=== PATIENT | female | born 2000 | race Caucasian/White ===

== ENCOUNTER 2023-03-15 20:17 | Emergency (ER) | payer OTHER, SELFPAY ==
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
[2023-03-15 20:53] VITALS: BP 114/75; PULSE 86; RESP 18; TEMP 36.6; O2SAT 97; BMI 27.9
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
== END 2023-03-15 23:28 | disposition home or self-care (01) ==
PROVIDERS: Emergency Provider Emergency Medicine; PCP Physician Assistant
DX: S06.0X0A Concussion without loss of consciousness, initial encounter (principal); Y04.2XXA Assault by strike against or bumped into by another person, initial encounter; R11.2 Nausea with vomiting, unspecified; Y93.F1 Activity, caregiving, bathing; Y92.239 Unspecified place in hospital as the place of occurrence of the external cause; Y99.0 Civilian activity done for income or pay
CPT/HCPCS: 70450; 99283; 99284

== ENCOUNTER → 2023-03-20 13:59 | Outpatient (BNVA) | payer SELFPAY | PROVIDERS: PCP Physician Assistant | DX: Z13.89 Encounter for screening for other disorder (principal) | CPT/HCPCS: 99202 ==

== ENCOUNTER → 2023-03-26 12:58 | Outpatient (BNVA) | payer OTHER, SELFPAY | PROVIDERS: PCP Physician Assistant; Visit Provider Physician Assistant Medical | DX: Z13.89 Encounter for screening for other disorder (principal) | CPT/HCPCS: 99213 ==

== ENCOUNTER → 2023-04-03 14:06 | Outpatient (BNVA) | payer OTHER, SELFPAY | PROVIDERS: PCP Physician Assistant; Visit Provider Physician Assistant Medical | DX: Z13.89 Encounter for screening for other disorder (principal) | CPT/HCPCS: 99213 ==

== ENCOUNTER → 2024-10-28 14:01 | Outpatient (BNVA) | payer SELFPAY | PROVIDERS: PCP Physician Assistant | DX: Z02.89 Encounter for other administrative examinations (principal) ==